=== PATIENT | female | born 1985 | race Caucasian/White ===

== ENCOUNTER 2023-05-26 13:00 | Emergency (ER) | payer OTHER, SELFPAY ==
[2023-05-26 13:21] VITALS: BP 109/73; PULSE 61; RESP 16; TEMP 36.4; O2SAT 100
--- NOTE | 2023-05-26 14:53 | ED.ANIMALBIT ---
HPI - Animal Bite General Chief Complaint: Animal Bite Stated Complaint: bitten by bat yesterday Time Seen by Provider: 05/26/23 14:24 History of Present Illness HPI narrative: Patient is a 37-year-old female who presents ER after being exposed to a bat. Yesterday she was at a water park in [place] and there was a bat laying beneath her chair. She touched it with a leaf and it began to move. She then picked it up and held it in a cupped position. She reports the bat then bit her several times on the fingers as she could feel the pinching sensation. She does not believe this to be the bats hand/claws. She reports about was not acting right and took it to a office who then contacted possibly animal control. She was told that the bat would be euthanized if given so she took the bat to the [place] and placed it in a tree. She no longer has access to the bat. She has become concerned that she may have contracted something serious such as rabies. She also is unsure when her last tetanus shot was given. Related Data Home Medications Medication Instructions Recorded Confirmed [place]'s wort 300 mg tablet 300 mg PO DAILY 12/29/19 01/31/20 cholecalciferol (vitamin D3) 250 10,000 unit PO DAILY 12/29/19 01/29/21 mcg (10,000 unit) capsule ibuprofen 200 mg capsule 200 mg PO Q6H PRN 12/29/19 01/29/21 escitalopram oxalate 20 mg tablet 10 mg PO DAILY 01/27/21 01/29/21 Allergies Allergy/AdvReac Type Severity Reaction Status Date / Time No Known Allergies Allergy Verified 05/26/23 13:00 Review of Systems Constitutional: Constitutional: Denies chills and Denies fever(s) Integumentary/Breasts: Skin/Breast: Denies erythema, Denies rash and Denies skin ulcer Neurologic: Denies numbness and Denies weakness [facility] Past Medical History Medical History (Updated 05/26/23 @ 16:29 by Jani Kaiser MD) Asthma Surgical History Surgical History Hx of tonsillectomy Social History Social History Smoking status: Never smoker Second hand tobacco smoke exposure: No Alcohol intake: current Exam Narrative: GENERAL: Well-appearing, well-nourished, and in no acute distress. HEAD: Normocephalic, atraumatic. ENT: Mucous membranes moist. EXTREMITIES: Normal range of motion. No edema. Normal-appearing hands without obvious bite kiera or any scabbing. SKIN: Warm, dry, no rash. NEURO: Alert and oriented x3. PSYCH: Normal mood and affect. Course Course Emergency Course: The infectious disease nurse has been contacted. She has been given a prescription for the future rabies vaccinations. She has been in to speak with the patient about follow-up plans and patient is aware she will need further vaccinations. Patient also has received a tetanus update. Vital Signs Vital signs: Vital Signs Temperature 97.5 F L 05/26/23 13:21 Pulse Rate 61 05/26/23 13:21 Respiratory Rate 16 05/26/23 13:21 Blood Pressure 109/73 05/26/23 13:21 Pulse Oximetry 100 05/26/23 13:21 Oxygen Delivery Room Air 05/26/23 13:21 Temperature 97.5 F L 05/26/23 13:21 Pulse Rate 61 05/26/23 13:21 Respiratory Rate 16 05/26/23 13:21 Blood Pressure 109/73 05/26/23 13:21 Pulse Oximetry 100 05/26/23 13:21 Oxygen Delivery Room Air 05/26/23 13:21 Discharge Plan Discharge Clinical Impression: Bat bite of finger, Rabies exposure Patient Disposition: Home, Self-Care Condition: Stable Instructions: Rabies Vaccine (By injection), Animal Bite (ED), Rabies (ED) Additional Instructions: You were given rabies Ig as well as a rabies vaccine and a tetanus shot today. You are going to follow-up with the infection control nurse on May 29, June 02, and June 09 to complete your rabies series. Return the ER if you had fever over 100.4 ?F, you cannot keep down food or water, you lose consciousness, you cole
[2023-05-26] MEDS: RABIES VACCINE (RABAVERT) 2.5 UNITS VIAL IM (15:24)
[2023-05-26] MEDS: RABIES IMMUNE GLOBULIN/PF 1,500 UNITS/5 ML VIAL 1220 UNITS IM (15:26)
[2023-05-26] MEDS: TETANUS,DIPHTHERIA,AC PERTUSSIS ADULT (0.5 ML) BOOSTRIX IM (15:53)
[2023-05-26 16:36] VITALS: BP 115/74; PULSE 59; RESP 16; O2SAT 100
== END 2023-05-26 16:35 | disposition home or self-care (01) ==
PROVIDERS: Emergency Provider Emergency Medicine; PCP Physician Assistant
DX: S61.259A Open bite of unspecified finger without damage to nail, initial encounter (principal); Z20.3 Contact with and (suspected) exposure to rabies; Z23 Encounter for immunization; J45.909 Unspecified asthma, uncomplicated; W55.81XA Bitten by other mammals, initial encounter
CPT/HCPCS: 90471; 90472; 90675; 90715; 96372; 99283; 90375

== ENCOUNTER 2023-06-02 06:34 | Outpatient (RCR) | payer OTHER, SELFPAY ==
--- NOTE | 2023-06-02 07:24 | PC.NURSE ---
AMBULATORY TO DRAW STATION FOR 3RD RABIES VACCINE. STATES IS FEELING WELL. DENIES FATIGUE, NAUSEA, DIARRHEA, HEADACHE. GIVEN 3RD DOSE OF VACCINE. TO RETURN IN 1 WEEK FOR FINAL VACCINE. DISCHARGED AMBULATORY WITH STEADY GAIT.
--- NOTE | 2023-06-09 08:49 | PC.NURSE ---
AMBULATORY TO OUTPATIENT DRAW STATION FOR 4TH RABIES VACCINE. DENIES NAUSEA, DIARRHEA AND FATIGUE. STATES HAS HAD A SORE THROAT SINCE YESTERDAY. STATES FRIEND HAS ALSO HAS HAD A SORE THROAT RECENTLY. 4TH VACCINES ADMINISTERED IN THE RIGHT DELTOID.
== END 2023-08-27 23:59 | disposition home or self-care (01) ==
LOC: ANHVASCINF 06:34
PROVIDERS: PCP Physician Assistant; Visit Provider Emergency Medicine
DX: Z20.3 Contact with and (suspected) exposure to rabies (principal)
CPT/HCPCS: 90471; 90675

== ENCOUNTER 2024-11-07 15:06 | Emergency (ER) | payer OTHER, SELFPAY ==
[2024-11-07 15:23] VITALS: BP 107/65; PULSE 103; RESP 16; TEMP 38.7; O2SAT 100
--- NOTE | 2024-11-07 15:45 | ED_ITS ---
HPI - URI/Sore Throat General Chief Complaint: Upper Respiratory Infection Stated Complaint: Fever/sore throat Time Seen by Provider: 11/07/24 15:40 Source: patient Mode of arrival: ambulatory Limitations: no limitations History of Present Illness HPI Narrative: 39-year-old female who presents to [facility] with complaints illness starting last night which includes postnasal drainage, scratchy throat, fever wh ich initially was 100.4 with highest noted today of 101.7 and body aches. Patient reports that she is planning to go see her mother for her birthday but her mother has been receiving chemotherapy and she wants to make sure she isn't ill with some infection before she goes. Patient reports that she has taken some Tylenol . MD elicited complaint: fever, sore throat and other (body aches) Onset (ago): day(s) (reports symptoms started yesterday evening) Severity: moderate Pain scale (0-10): 4 Able to tolerate fluids by mouth: Yes Treatments prior to arrival: acetaminophen Related Data Home Medications ?Medication ?Instructions ?Recorded ?Confirmed ?Last Taken ?Type [place]'s wort 300 mg tablet 300 mg PO DAILY 12/29/19 01/31/20 Unknown History cholecalciferol (vitamin D3) 250 10,000 unit PO DAILY 12/29/19 01/29/21 Unknown History mcg (10,000 unit) capsule fluoxetine 20 mg capsule mg 11/07/24 Unknown History Allergies Allergy/AdvReac Type Severity Reaction Status Date / Time No Known Allergies Allergy Verified 05/26/23 13:00 Review of Systems Review of Systems: CONSTITUTIONAL:Reports malaise, chills, sweats, or fever. EYES: Denies visual changes, redness, or discharge. ENT: Reports rhinorrhea, congestion, sinus pain, otalgia and scratchy sore throat. CARDIOVASCULAR: Denies chest pain, palpitations, or edema. RESPIRATORY: Reports occasional cough.? Denies dyspnea. GASTROINTESTINAL: Denies abdominal pain, nausea, vomiting, diarrhea SKIN: Denies rash or itching. MUSCULOSKELETAL:Reports myalgia. NEUROLOGIC: Denies headache. All systems reviewed & are unremarkable except as noted in HPI and below PMFSH Past Medical History Medical History (Updated 11/08/24 @ 13:54 by Kelly Hicks NP) Anxiety and depression Asthma Surgical History Surgical History Hx of tonsillectomy Social History Social History (Updated 11/08/24 @ 13:49 by Kelly Hicks NP) Smoking status: Never smoker Second hand tobacco smoke exposure: No Alcohol intake: current Substance use type: does not use Gender identity (if verbalized by the patient): Female Comments At time of signature, agree with nursing past medical, surgical, social and family history. There is no relevant family history pertinent to the presenting complaint Exam Narrative: GENERAL:Ill-appearing, well-nourished, and in no acute distress.febrile. HEAD: Normocephalic EYES: PERRLA, conjunctivae clear ENT: Nares clear, turbinates edematous and erythematous, clear discharge. Mucous membranes moist. TM pearly oliver with dull light reflex bilaterally; no tragal tenderness. Oropharynx erythematous without lesions. Tonsils not present and throat without exudate, no drooling, no hoarseness, no trismus, uvula midline.post nasal drainage NECK: Supple. No lymphadenopathy CHEST: Clear to auscultation, breath sounds equal. No wheezing, rhonchi, rales, or stridor. No respiratory distress, speaks in full sentences.SAO2 100% on room air HEART: Regular rate and rhythm. No murmur heard. SKIN: Warm, dry, no rash. NEURO: Alert and oriented x3. PSYCH: Normal mood and affect Course Course Emergency Course: Patient is aware of diagnosis, understands and agrees to treatment plan.? Anticipatory guidance given.? Patient agrees to follow-up as directed and is aware of reasons to seek care at the emergency department. Portions of this record may have been created with voice recognition software Level of Care: Express Care Visit Vital Signs Vital signs: Vital Signs Temperature 38.7 C H 11/07/24 15:23 Pulse Rate 103 H 11/07/24 15:23 Respiratory Rate 16 11/07/24 15:23 Blood Pressure 107/65 11/07/24 15:23 Pulse Oximetry 100 11/07/24 15:23 Temperature 38.7 C H 11/07/24 15:23 Pulse Rate 103 H 11/07/24 15:23 Respiratory Rate 16 11/07/24 15:23 Blood Pressure 107/65 11/07/24 15:23 Pulse Oximetry 100 11/07/24 15:23 Reviewed MDM - URI/Sore Throat MDM Narrative Medical decision making narrative: Differential diagnosis considered: [place] virus, strep pharyngitis, allergic rhinitis, upper respiratory tract infection, sinusitis, rhinosinusitis, nasop haryngitis. viral pharyngitis, otitis media, otitis externa, pneumonia, bronchitis, viral cough syndrome, viral syndrome, and influenza.? Exam findings show no acute concerns or changes; patient is non-toxic appearing and is in no distress.? Patient is appropriate for outpatient treatment and follow-up. Differential Diagnosis Differential diagnosis: Likely upper respiratory infection, viral infection, influenza, pharyngitis and other (strep pharyngitis, COVID) Medical Records Attestation: I reviewed the patient's medical records. Lab Data Attestation: I reviewed the patient's lab results. Lab results narrative: strep screen negative, culture sent, Influenza A negative Influenza B negative COVID antigen positive Labs: Lab Results 11/07/24 Range/Units 16:05 POC Influenza A Ag Negative (Negative) POC Influenza B Ag Negative (Negative) POC SARS CoV-2 Ag Positive (Negative) POC Grp A Strep Screen Negative (Negative) Critical Care Time Critical Care Time Critical Care Time: No Discharge Plan Discharge Clinical Impression: COVID-19 Patient Disposition: Home, Self-Care Condition: Stable Instructions: Antibiotic Form, How to Recover from COVID-19 at Home (ED) Additional Instructions: Increase fluids especially juices and water [id number] cough and cold medicine of your choice for your symptoms Zyrtec Claritin or Marlene daily may include plain Sudafed for sinus congestion and drainage Tylenol or Ibuprofen for fever or chills heat to the face 20-30 minutes 4-6 times a day for pain Salt water gargles, throat lozenges or throat sprays as desired Quarantine as instructed COVID-19 DISCHARGE The following recommendations have been made by the CDC and local Health Departments, regarding COVID-19: Those individuals with mild cases of COVID-19 can generally be discontinued from isolation, 5 days AFTER the onset of symptoms AND the resolution of fever for 24hrs (without the use of fever-reducing medications) Those individuals who were asymptomatic, and tested positive, are discontinued from isolation 10 days AFTER their first positive COVID-19 test Those individuals with SEVERE to CRITICAL illness or immunocompromised diseases may require up to 20 days of home isolation or hospitalization Majority of mild to moderate cases can be treated at home, without hospitalization or prescription medications You do not need a negative test result to return to work/school, assuming the above recommendations have been met and you are not symptomatic. At this time, return to work/school notes will not be provided. Guidelines from the local Health Department, CDC, and workplace are expected to be followed. All individuals in the household need to remained quarantined for up to 14 days if asymptomatic OR 10 days after the start of symptoms. Everyone in the home DOES NOT require testing, they are presumed positive and should quarantine as directed. Treating symptoms for mild to moderate cases may include: Tylenol, Flonase/nasal spray, OTC cold/flu medications recommended from your provider or any necessary prescription medications provided at your visit or from your PCP IF YOU TESTED NEGATIVE If you are symptomatic with reason to believe you have COVID-19, there is a high possibility your rapid test may not have detected the virus. Rapid testing is dependent on timing and viral load and may have a false- negative reading You should follow appropriate guidelines regarding quarantine, hand washing, mask wearing, and social distancing You may be sent for PCR testing as an outpatient to the [place] testing site Common Adult Symptoms: Fever/chills Cough Shortness of breath Fatigue, muscle aches Headache Loss of taste/smell Sore throat, congestion, runny nose GI symptoms (nausea, vomiting, diarrhea) Common Pediatric Symptoms Cough Fever GI symptoms (diarrhea, upset stomach, nausea, vomiting) Symptoms may differ in severity however, most cases do not require hospitalization. WHEN TO SEEK ER EVALUATION/TREATMENT Severe/persistent shortness of breath or difficulty breathing Elevated, persistent fevers without resolution with fever-reducing medications Chest pain Extreme fatigue/lethargy Complications of pre-existing disease Patient Language: Faroese Prescriptions: No Action fluoxetine 20 mg capsule Jerome's wort 300 mg tablet 300 mg PO DAILY cholecalciferol (vitamin D3) 250 mcg (10,000 unit) capsule 10,000 unit PO DAILY Follow-up/Referrals: UNKNOWN,DOCTOR [Primary Care Provider] - Time of Disposition: 16:03 Quality [place] Coma Scale Eyes: Open Verbal: Oriented and Alert Motor: Follows Commands Migdalia Coma Total Score: 15
[2024-11-07 16:07] LABS: EDCOVIDSCREEN Positive (Negative); EDINFLUASCREEN Negative (Negative); EDINFLUBSCREEN Negative (Negative); EDSTREPNEGPOS1 Negative (Negative)
== END 2024-11-07 16:09 | disposition home or self-care (01) ==
PROVIDERS: Emergency Provider Registered Nurse
DX: U07.1 COVID-19 (principal); J45.909 Unspecified asthma, uncomplicated
CPT/HCPCS: 87081; 87426; 87804; 87880; 99213; G0463